=== PATIENT | female | born 1970 | race Two or more races ===

== ENCOUNTER 2025-06-12 15:14 | Emergency (ER) | payer BC, SELFPAY ==
[2025-06-12 15:27] VITALS: BP 132/80
[2025-06-12 15:48] LABS: Hematocrit 35.6 % (37.0-47.0); Hemoglobin 11.8 g/dL (12.0-16.0); Mean Corp Hgb Conc. 33.1 g/dL (33.0-37.0); Mean Corpuscular Volume 87.5 fL (81.0-99.0); Nucleated Red Blood Cells % 0 %; Platelet Count 228 10^3/uL (130-400); Red Cell Dist. Width 12.5 % (11.5-14.5)
[2025-06-12 16:03] LABS: ALT (SGPT) 31 U/L (0-35); AST (SGOT) 27 U/L (14-36); Albumin 4.5 g/dl (3.5-5.0); Alkaline Phosphatase 66 U/L (38-126); Blood Urea Nitrogen 24 mg/dl (7-17); Calcium 9.7 mg/dl (8.4-10.2); Carbon Dioxide 26 mmol/L (22-30); Chloride 105 mmol/L (98-107); Glucose 99 mg/dl (70-99); Potassium 4.2 mmol/L (3.5-5.1); Sodium 138 mmol/L (135-145); Total Protein 7.6 g/dl (6.3-8.2); eGFR > 60.00
[2025-06-12 16:12] LABS: Troponin I < 0.012 ng/ml
[2025-06-12 16:25] VITALS: BP 113/80
[2025-06-12 16:51] VITALS: BMI 24.8
--- NOTE | 2025-06-12 16:55 | ED.GENMED ---
History of Present Illness
General
Chief Complaint: Chest Pain
Source: patient
Exam Limitations: none
Time Seen by Provider: 06/12/25 16:22
History of Present Illness
History of Present Illness:
55yoF with no significant past medical history presenting for evaluation of chest pain. Symptoms initially began about 4 months ago. She was having the chest pain about once monthly but now pain has become more frequent. She is now experiencing
the pain about twice a week. Her pain is described as a squeezing sensation in the left side of her chest. This seems to come on while she is working. She is employed as a hairdresser. The pain lasts about 5 to 10 minutes before resolving. She
exercises 3 times a week and denies having any exertional chest pains. She is currently asymptomatic. No associated nausea, vomiting, syncope, leg swelling, calf pain. Patient was told that her cholesterol was borderline at last year's blood work
but otherwise denies any past medical history.
Phy Exam
General Physical Exam
General Presentation: well appearing and no apparent distress
General Skin: warm and dry
General Habitus: normal
General Mental: alert
ENT Exam
ENT Exam: normocephalic
Cardiovascular Exam
Cardiovascular Exam: regular rate/rhythm, no edema and no murmur
Pulmonary Exam
Pulmonary Exam: lungs clear, no respiratory distress, no rales, no crackles, no rhonchi and no wheezing
Neurological Exam
Neurological Exam: alert
[place] Coma Scale
Eye Opening: Spontaneous
Verbal Response: Oriented
Motor Response: Obeys Commands
GCS Total Score: 15
Skin Exam
Skin Exam: normal color and warm/dry
Psychiatric Exam
Psychiatric Exam: normal mood/affect
Scores
Heart Score for Chest Pain Patients
STEMI patient?: No
History: Slightly or Non-Suspicious
ECG: Normal
Age: >45 - <65 years
Risk Factors: No Risk Factors
Troponin: </= Normal Limit
Heart Score for Chest Pain Patients: 1
Heart Score Risk: 2.5% MACE over next 6 weeks
Course
Orders/Labs/Results
Orders:
Orders
06/12/25 15:24
ECG [Electrocardiogram (*1)] Urgent
Reason for Study: Chest Pain
EKG- Treatment ONCE
06/12/25 15:41
Complete Blood Count/With Diff Urgent
Comprehensive Metabolic Panel Urgent
Troponin I Urgent
06/12/25 17:15
EKG- Treatment ONCE
CR Chest - 2 Views Urgent
Comment:
Reason For Exam: CP
06/12/25 18:37
Troponin I Urgent
06/12/25 18:40
Electrocardiogram (*1) Urgent
Reason for Study: Chest Pain
Abnormal Lab Results
06/12/25
15:41
RBC 4.07 L 10^6/uL
(4.20-5.40)
Hgb 11.8 L g/dL
(12.0-16.0)
Hct 35.6 L %
(37.0-47.0)
MPV 11.1 H fL
(7.4-10.4)
BUN 24 H mg/dl
(7-17)
06/12/25 15:41
06/12/25 15:41
Vital Signs
Initial and Last Documented VS:
Initial Vital Signs
Resp
16
06/12/25 15:24
Last Documented Vital Signs
Temp Pulse Resp BP Pulse Ox
97.7 F 60 14 113/61 99
06/12/25 15:27 06/12/25 19:30 06/12/25 16:30 06/12/25 19:00 06/12/25 19:30
MDM/Problems Addressed
Differential Diagnosis Includes:
55yoF here with intermittent chest pain x several months that is becoming more frequent. Currently asymptomatic. No exertional symptoms. VSS. She is well-appearing in no distress and exam reassuring. Differential diagnosis includes but is not
limited to: Musculoskeletal, GERD, pneumonia, less likely ACS
Initial ED plan: Workup initiated in triage. EKG shows sinus bradycardia without ischemic changes and troponin within normal limits. Will check delta troponin/EKG and chest x-ray.
*Pulse Oximetry
SaO2: 100
Oxygen Mode of Delivery: Room air
Patient hypoxic: no (100%)
*EKG
Interpreted by ED Provider?: Yes
EKG Intrepretation Date: 06/12/25
Heart Rate: 59
Rate: bradycardiac
Rhythm: sinus
[place]: normal axis
Interval: normal interval
QRS Pattern: normal QRS
Ischemia: no ischemia
*Critical Care Note
Total Time (30-74mins, 75-104mins- exclusive of procedures): Not Applicable
Update Note
Update Note:
Repeat EKG and troponin unchanged. Chest x-ray appears clear per my interpretation. Patient remains asymptomatic on reassessment has not had any recurrent chest pains since arrival to the ED. No indication for hospitalization. She was advised to
follow-up with her PCP and cardiology. Strict ED return precautions reviewed. Patient and son in agreement with plan and she was discharged in stable condition.
ED Attending Note
-
Portions of this chart may have been created with voice recognition software.� Occasional wrong word or��sound alike� substitutions may have occurred due to the inherent limitations of voice recognition software.
Discharge Plan
Departure
Patient Disposition: Home (Routine Discharge)
Date of Disposition: 06/12/25
Time of Disposition: 19:38
Patient with high blood pressure during this ER visit?: No
Discharge Problem:
Chest pain
Instructions: Chest pain in adults - ED (DC)
Prescriptions:
No Action
No Current Medications
0
Referrals:
Angeles,Alex C., DO [Family Provider, Family Practice]
Day Fu MD [Active, Cardiology]
Activity Restrictions/Additional Instructions:
Please call on Sunday to schedule follow-up appointments with your family doctor and cardiology. Return to the ER with any new or worsening symptoms.
Interventions
Interventions:
*Risk Screen - Suicide Last Done: 06/12/25 16:52
*General Assessment Last Done: 06/12/25 16:52
*Neglect/Abuse Screening Last Done: 06/12/25 16:52
*ED- Fall Risk Assessment Last Done: 06/12/25 16:52
*ED COVID-19 Vaccine History Last Done: 06/12/25 16:52
*Nursing Disposition Last Done: 06/12/25 19:45
ED- Cardiac Assessment Last Done: 06/12/25 16:55
Discharge Date and Time
Discharge Date/Time: 06/12/25 19:46
Print Language: [place]
[2025-06-12 17:00] VITALS: BP 125/70
[2025-06-12 17:45] VITALS: BP 103/72
[2025-06-12 18:05] VITALS: BP 117/52
[2025-06-12 19:00] VITALS: BP 113/61
[2025-06-12 19:11] LABS: Troponin I < 0.012 ng/ml
== END 2025-06-12 19:46 | disposition home or self-care (01) ==
LOC: EMR 15:14
PROVIDERS: Emergency Medicine; Physician Assistant; EMERGENCY PHYSICIAN Emergency Medicine; FAMILY PHYSICIAN Family Medicine
DX: R07.9 Chest pain, unspecified (principal); R00.1 Bradycardia, unspecified
CPT/HCPCS: 99285; 71046; 80053; 84484; 85025; 93005